=== PATIENT | female | born 2000 | race African-American/Black ===

== ENCOUNTER 2022-11-13 15:04 | Emergency (ER) | payer OTHER ==
[~2022-11-13] VITALS: Ht 180.3 cm; Wt 132.0 kg
[2022-11-13 15:47] VITALS: BP 130/65
[2022-11-13] MEDS ORDERED: AZIT500T66 PO (16:18)
[2022-11-13] MEDS ORDERED: IBUP800T27 PO (16:18)
== END 2022-11-13 16:26 | disposition home or self-care (01) ==
LOC: ER 15:08
DX: J03.90 Acute tonsillitis, unspecified (principal)

== ENCOUNTER 2022-11-24 18:03 | Emergency (ER) | payer OTHER ==
[~2022-11-24] VITALS: Ht 180.3 cm; Wt 127.3 kg
[~2022-11-24 18:03] MED LIST: AZIT500T66 PO; IBUP800T27 PO
[2022-11-24 20:44] VITALS: BP 123/82
== END 2022-11-24 21:31 | disposition home or self-care (01) ==
LOC: ER 18:03
DX: S09.8XXA Other specified injuries of head, initial encounter (principal); Y04.2XXA Assault by strike against or bumped into by another person, initial encounter; Y93.89 Activity, other specified; Y92.89 Other specified places as the place of occurrence of the external cause; Y99.8 Other external cause status

== ENCOUNTER 2022-12-09 18:26 | Emergency (ER) | payer BC, OTHER ==
[~2022-12-09] VITALS: Ht 177.8 cm; Wt 130.9 kg
[2022-12-09 18:50] VITALS: BP 134/81
[2022-12-09] MEDS ORDERED: FLUC150T2 PO (21:21)
== END 2022-12-09 21:34 | disposition home or self-care (01) ==
LOC: ER 18:26
DX: B37.31 Acute candidiasis of vulva and vagina (principal); Z79.899 Other long term (current) drug therapy; Z00.00 Encounter for general adult medical examination without abnormal findings